=== PATIENT | male | born 1965 | race Caucasian/White ===

== ENCOUNTER 2017-04-14 09:52 | Inpatient (IN) | payer OTHER ==
[~2017-04-14] VITALS: Ht 180.3 cm; Wt 107.5 kg
[2017-04-14] VITALS (12 sets, daily range): BP systolic 81–136; BP diastolic 57–98
[~2017-04-14 09:52] MED LIST: ADVIL,NUPRIN,M200 MG PO; AMBIEN10 MG PO; AMBIEN5 MG PO; AMIODARONE HCL200 MG PO; ANTIVERT25 MG PO; ASPIR-LOW81 MG PO; ATORVASTATIN CA80 MG PO; CARVEDILOL25 MG PO; CLOTRIMAZOLE10 MG PO; CYMBALTA60 MG PO; FENOFIBRATE145 M1 PO; FLUOXETINE HCL20 MG PO; FUROSEMIDE40 MG PO; HYDRALAZINE HCL10 MG PO; ISOSORBIDE DINI10 MG PO; K-DUR20 MEQ PO; KLONOPIN0.5 M1 PO; LASIX40 MG PO; LEXAPRO10 MG PO; LISINOPRIL20 MG PO; LOTREL 10/41 CAPSULE PO; METOPROLOL TART50 MG PO; MULTI VITAMIN1 EACH PO; NITROSTAT0.4 MG SL; OMEGA-3 1,0001 EAC1 PO; PLAVIX75 MG PO; SIMVASTATIN40 MG PO
[2017-04-14 10:26] LABS: HEMATOCRIT 38.5 % (38.0-50.0); HEMOGLOBIN 11.9 G/DL (12.5-16.6); MCH 30.8 PG (29.0-34.0); MCHC 30.9 G/DL (30.0-36.0); MCV 99.7 FL (86-99); PLATELET COUNT 250 K/uL (156-360); RBC DIS.WIDTH-CV 18.6 % (11.8-14.6); RBC DIS.WIDTH-SD 67.7 % (39-53); RED BLOOD COUNT 3.86 M/uL (4.00-5.50); WHITE BLOOD COUNT 11.2 K/uL (4.1-10.2)
[2017-04-14 10:38] LABS: CHLORIDE 105 mEq/L (99-109); POTASSIUM 4.4 mEq/L (3.7-5.4); SODIUM 142 mEq/L (136-147)
[2017-04-14 10:39] LABS: GLUCOSE 270 mg/dL (70-99)
[2017-04-14 10:39] LABS: APPEARANCE SL.HAZY ((CLEAR)); BILIRUBIN NEGATIVE; BLOOD NEGATIVE; COLOR AMBER ((YELLOW)); GLUCOSE (STRIP) NEGATIVE; KETONES NEGATIVE; LEUKOCYTES NEGATIVE; NITRITE NEGATIVE; PROTEIN (STRIP) 100
[2017-04-14 10:43] LABS: CREATININE 1.7 mg/dL (0.6-1.3); GFR ESTIMATE (CALCULATED) 45 mL/min/ (58.99-99999)
[2017-04-14 10:44] LABS: UREA NITROGEN (BUN) 20 mg/dL (9-23)
[2017-04-14 10:47] LABS: TROP-I INTERPRETATION NEGATIVE; TROPONIN-I 0.05 ng/mL (0.0-0.30)
[2017-04-14 10:53] LABS: BACTERIA NONE SEEN /HPF; EPITHELIAL CELLS NONE SEEN /HPF; MUCUS NONE SEEN /LPF; UCUL ADDED? NO; WHITE BLOOD CELLS 0-5 /HPF (0-5)
[2017-04-14 11:15] LABS: BASE EXCESS -4.7 mEq/L (-3 to +3); BICARBONATE 23.1 mEq/L (22-26); CARBOXY HGB 3.9 % (0-5); PCO2 54 mm Hg (35-45); PO2 77 mm Hg (80-100)
[2017-04-14 11:16] LABS: COMMENTS - BLOOD GASES NAC+; DEVICE 980 VENT; SITE LR; pH 7.24 (7.35-7.45)
[2017-04-14 11:17] LABS: FI02 100 %; MECHANICAL RATE 20 resp/min; MODE A/C; PEEP 12.5 CM/H20; TIDAL VOLUME 550 ML; TOTAL RESP RATE 20 resp/min
[2017-04-14 14:18] LABS: BASE EXCESS -0.7 mEq/L (-3 to +3); BICARBONATE 25.4 mEq/L (22-26); CARBOXY HGB 2.8 % (0-5); METHEMOGLOBIN 1.5 % (0-1.5); PCO2 47 mm Hg (35-45); PO2 151 mm Hg (80-100); pH 7.34 (7.35-7.45)
[2017-04-14 14:19] LABS: COMMENTS - BLOOD GASES A+C+; DEVICE 980 PB; FI02 100 %; INSPIRATION TIME 0.8 seconds; MECHANICAL RATE 24 resp/min; MODE AC VC+; PEEP 12.5 CM/H20; SITE RR; TIDAL VOLUME 550 ML; TOTAL RESP RATE 24 resp/min
[2017-04-15] VITALS (41 sets, daily range): BP systolic 70–121; BP diastolic 47–85
[2017-04-15 05:34] LABS: HEMATOCRIT 32.1 % (38.0-50.0); MCH 30.2 PG (29.0-34.0); MCHC 31.2 G/DL (30.0-36.0); PLATELET COUNT 195 K/uL (156-360); RBC DIS.WIDTH-SD 66.4 % (39-53); RED BLOOD COUNT 3.31 M/uL (4.00-5.50)
[2017-04-15 06:06] LABS: CHLORIDE 107 MEQ/L (99-109); SODIUM 144 MEQ/L (136-147); UREA NITROGEN (BUN) 27 mg/dL (9-23)
[2017-04-15 06:13] LABS: CREATININE 2.5 MG/DL (0.6-1.3); GFR ESTIMATE (CALCULATED) 29 mL/min/ (58.99-99999); GLUCOSE 84 mg/dL (70-99); POTASSIUM 3.2 MEQ/L (3.7-5.4)
[2017-04-16] VITALS (24 sets, daily range): BP systolic 83–115; BP diastolic 59–79
[2017-04-16 05:35] LABS: HEMATOCRIT 32.4 % (38.0-50.0); HEMOGLOBIN 10.3 G/DL (12.5-16.6); MCH 30.5 PG (29.0-34.0); MCHC 31.8 G/DL (30.0-36.0); MCV 95.9 FL (86-99); PLATELET COUNT 180 K/uL (156-360); RBC DIS.WIDTH-CV 18.8 % (11.8-14.6); RBC DIS.WIDTH-SD 66.8 % (39-53); RED BLOOD COUNT 3.38 M/uL (4.00-5.50); WHITE BLOOD COUNT 8.7 K/uL (4.1-10.2)
[2017-04-16 06:01] LABS: ALBUMIN 3.1 G/DL (3.2-4.8); ALKALINE PHOSPHATASE 48 IU/L (3-129); ALT (GPT) 6 IU/L (3-49); AST (GOT) 10 IU/L (2-34); CHLORIDE 106 MEQ/L (99-109); CREATININE 2.7 MG/DL (0.6-1.3); GFR ESTIMATE (CALCULATED) 26 mL/min/ (58.99-99999); GLUCOSE 89 mg/dL (70-99); MAGNESIUM 1.2 mg/dl (1.3-2.7); PHOSPHORUS 4.5 mg/dL (2.5-4.9); POTASSIUM 3.4 MEQ/L (3.7-5.4); SODIUM 147 MEQ/L (136-147); TOTAL BILIRUBIN 1.6 MG/DL (0.0-1.0); TOTAL PROTEIN 5.3 G/DL (6.4-8.3); UREA NITROGEN (BUN) 33 mg/dL (9-23)
[2017-04-17] VITALS (20 sets, daily range): BP systolic 78–117; BP diastolic 58–76
[2017-04-17 09:32] LABS: ALBUMIN 3.3 G/DL (3.2-4.8); CHLORIDE 108 MEQ/L (99-109); CREATININE 2.5 MG/DL (0.6-1.3); GFR ESTIMATE (CALCULATED) 29 mL/min/ (58.99-99999); POTASSIUM 3.7 MEQ/L (3.7-5.4); SODIUM 145 MEQ/L (136-147); UREA NITROGEN (BUN) 37 mg/dL (9-23)
[2017-04-17 09:33] LABS: GLUCOSE 120 mg/dL (70-99); MAGNESIUM 1.5 mg/dl (1.3-2.7)
[2017-04-18] VITALS (24 sets, daily range): BP systolic 76–124; BP diastolic 54–89
[2017-04-18 08:22] LABS: BASOPHIL (%) 0.3 % (0-1); EOSINOPHIL COUNT 0.3 K/uL (0-0.3); HEMATOCRIT 33.1 % (38.0-50.0); HEMOGLOBIN 10.5 G/DL (12.5-16.6); IMMATURE GRANULOCYTE (%) 0.2 % (0.0-0.7); LYMPHOCYTE COUNT 1.4 K/uL (1.0-2.8); MCH 30.3 PG (29.0-34.0); MCHC 31.7 G/DL (30.0-36.0); MCV 95.7 FL (86-99); MONOCYTE (%) 8.6 % (3-12); MONOCYTE COUNT 0.9 K/uL (0-0.8); NEUTROPHIL (%) 74.9 % (45-76); NEUTROPHIL COUNT 7.9 K/uL (1.8-6.4); PLATELET COUNT 189 K/uL (156-360); RBC DIS.WIDTH-CV 18.3 % (11.8-14.6); RBC DIS.WIDTH-SD 64.7 % (39-53); RED BLOOD COUNT 3.46 M/uL (4.00-5.50); WHITE BLOOD COUNT 10.5 K/uL (4.1-10.2)
[2017-04-18 09:01] LABS: CHLORIDE 110 mEq/L (99-109); POTASSIUM 3.4 mEq/L (3.7-5.4); SODIUM 144 mEq/L (136-147)
[2017-04-18 09:02] LABS: MAGNESIUM 1.4 mg/dL (1.3-2.7)
[2017-04-18 09:03] LABS: GLUCOSE 111 mg/dL (70-99)
[2017-04-18 09:07] LABS: CREATININE 2.3 mg/dL (0.6-1.3); GFR ESTIMATE (CALCULATED) 32 mL/min/ (58.99-99999)
[2017-04-18 09:08] LABS: UREA NITROGEN (BUN) 42 mg/dL (9-23)
[2017-04-18 09:41] LABS: BASE EXCESS 2.3 mEq/L (-3 to +3); METHEMOGLOBIN 1.5 % (0-1.5)
[2017-04-18 09:42] LABS: COMMENTS - BLOOD GASES +C; DEVICE PB980; FI02 100 %; MODE ACVC+; PCO2 32 mm Hg (35-45); PO2 72 mm Hg (80-100); SITE RR +A
[2017-04-18 09:43] LABS: INSPIRATION TIME 0.8 seconds; MECHANICAL RATE 24 resp/min; PEEP 8 CM/H20; TIDAL VOLUME 550 ML; TOTAL RESP RATE 24 resp/min
[2017-04-18 10:14] LABS: PHOSPHORUS 6.4 mg/dL (2.5-4.9)
[2017-04-19] VITALS (22 sets, daily range): BP systolic 73–147; BP diastolic 51–106
[2017-04-20] VITALS: BP 73/51
== END 2017-04-20 01:21 | DRG 207 ==
LOC: EME 09:52 → 4WEST 10:26 → EDOF 10:26 → 4WEST 10:26 → ENRESERV 10:53 → EDOF 11:01 → ENRESERV 11:06 → 4WEST 12:21
PROVIDERS: Emergency Medicine; Internal Medicine; Internal Medicine Critical Care Medicine; Specialist
PROC: 5A09357 Assistance with Respiratory Ventilation, Less than 24 Consecutive Hours, Continuous Positive Airway Pressure (ICD-10-PCS; principal; 2017-04-14)
PROC: 0BH17EZ Insertion of Endotracheal Airway into Trachea, Via Natural or Artificial Opening (ICD-10-PCS; principal; 2017-04-14)
PROC: 5A1955Z Respiratory Ventilation, Greater than 96 Consecutive Hours (ICD-10-PCS; principal; 2017-04-14)
DX: J96.01 Acute respiratory failure with hypoxia (principal); J15.6 Pneumonia due to other Gram-negative bacteria; N17.9 Acute kidney failure, unspecified; J44.0 Chronic obstructive pulmonary disease with (acute) lower respiratory infection; I13.0 Hypertensive heart and chronic kidney disease with heart failure and stage 1 through stage 4 chronic kidney disease, or unspecified chronic kidney disease; I50.43 Acute on chronic combined systolic (congestive) and diastolic (congestive) heart failure; I50.82 Biventricular heart failure; E11.22 Type 2 diabetes mellitus with diabetic chronic kidney disease; N18.3 Chronic kidney disease, stage 3 (moderate); E11.65 Type 2 diabetes mellitus with hyperglycemia; I47.2 Ventricular tachycardia; E83.42 Hypomagnesemia; E87.2 Acidosis; E87.6 Hypokalemia; Z51.5 Encounter for palliative care; Z66 Do not resuscitate; R74.0 Nonspecific elevation of levels of transaminase and lactic acid dehydrogenase [LDH]; I25.5 Ischemic cardiomyopathy; I42.0 Dilated cardiomyopathy; I25.10 Atherosclerotic heart disease of native coronary artery without angina pectoris; I25.2 Old myocardial infarction; E78.5 Hyperlipidemia, unspecified; E66.9 Obesity, unspecified; Z68.34 Body mass index [BMI] 34.0-34.9, adult; F17.210 Nicotine dependence, cigarettes, uncomplicated; Z82.49 Family history of ischemic heart disease and other diseases of the circulatory system; Z83.3 Family history of diabetes mellitus; Z86.73 Personal history of transient ischemic attack (TIA), and cerebral infarction without residual deficits; Z95.5 Presence of coronary angioplasty implant and graft; Z95.810 Presence of automatic (implantable) cardiac defibrillator
CPT/HCPCS: 31500; 36600; 71045; 74018; 80048; 80053; 80069; 81003; 82803; 82948; 83605; 83735; 84100; 84484; 85025; 85027; 87040; 87070; 87077; 87186; 87205; 87641; 93005; 94002; 94003; 99281; 99285; A6214; J0692; J0696; J1644; J1940; J2060; J2250; J2270; J2704; J3475; S0028